=== PATIENT | male | born 2000 | race African-American/Black ===

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

== ENCOUNTER 2021-07-26 06:19 | Emergency (ER) | payer MEDICAID, SELFPAY ==
[2021-07-26 06:32] VITALS: BP 130/85; PULSE 108; RESP 18; TEMP 37; O2SAT 96; BMI 30.4
[2021-07-26 06:40] VITALS: BP 112/77; PULSE 111; RESP 18; TEMP 36.8; O2SAT 96
--- NOTE | 2021-07-26 06:50 | ED_ITS ---
HPI - General Adult General Chief complaint: Upper Respiratory Symptoms Stated complaint: covid symptoms ? Time Seen by Provider: 07/26/21 06:41 Source: patient Mode of arrival: ambulatory Limitations: no limitations History of Present Illness HPI narrative: he has had 2 Pfizer vaccines MD complaint: body aches, headache, nausea, vomiting Onset (ago): day(s) (yesterday) Location: head and abdomen Radiation: non-radiation Severity: mild Quality: aching Relieving factors: none Exacerbating factors: none Associated symptoms: fever/chills, headaches, loss of appetite and nausea/vomiting Treatments prior to arrival: other (mom gave him tums and tylenol yesterday ) Related Data Previous Rx's Medication Instructions Recorded meclizine 25 mg tablet 25 mg PO DAILY PRN #10 tab 05/13/20 ondansetron 4 mg disintegrating 4 mg PO Q8H PRN #20 tab 07/26/21 tablet Allergies Allergy/AdvReac Type Severity Reaction Status Date / Time No Known Allergies Allergy Unverified 04/27/20 19:44 [No Known Allergies*] Review of Systems Review of Systems: Constitutional : positive Fever, positive Chills, positive fatigue, positive Malaise ENT/Mouth : no sore throat, positive runny nose Eyes: No Discharge Cardiovascular : No Chest Pain, No SOB Respiratory : No Cough, No Sputum Gastrointestinal : pos Nausea, pos Vomiting, No Diarrhea Genitourinary : No Dysuria, No Urinary Frequency Musculoskeletal : positive Myalgia Skin : No rash Neuro : pos Headache PMFSH Past Medical History Medical History No known health problems Family History Family History (Updated 05/13/20 @ 16:17 by Tony Del Cid DO) Mother Sjogren's disease Social History Social History (Updated 07/26/21 @ 06:55 by Nancy Mullen DO) Alcohol intake: never Patient Tobacco Use Status: Never used Tobacco Advance Directives: No Advance Directives Information Provided: Yes Physical Exam Vital Signs: Vital Signs: Last Vital Signs Temp 98.7 F 07/26/21 07:03 Pulse 86 07/26/21 07:03 Resp 16 07/26/21 07:03 BP 119/74 07/26/21 07:03 Pulse Ox 95 07/26/21 07:03 BMI result Body Mass Index 30.4 Appearance: Alert. Oriented X3. No acute distress. Eyes: Pupils equal, round and reactive to light. ENT: Pharynx normal. Neck: Normal inspection. Neck supple. no meningeal signs. CVS: Normal heart rate and rhythm. Pulses normal. Respiratory: No respiratory distress. Breath sounds normal. Abdomen: Soft and non-tender. Skin: Skin warm and dry. Normal skin color. Normal skin turgor. Extremities: No lower extremity edema. No calf ttp Neuro: Oriented X 3. No motor deficit. No sensory deficit. Course Course Course Narrative: negative COVID feels better Medical Decision Making [facility] Narrative Medical decision making narrative: 21 yo male with no sig PMH vaccinated x 2 here with c/o abdominal pain n/v headaches not feeling since yesterday - at this time will need COVID swab, zofran and tylenol - he is overall not toxic. His abdomen is benign. no localized pain to suggest appendicitis or cholecysitis - dispo per results and findings Lab Data Labs: Lab Results 07/26/21 Range/Units 06:45 COVID-19 ([facility]) Negative (Negative) COVID-19 Clin Com See Note Discharge Plan Discharge Clinical Impression: Viral infection Patient Disposition: Home, Self-Care Instructions: Viral Syndrome (ED) Additional Instructions: return to ED for any worsening symptoms or concerns drink plenty of fluids COVID negative if symptoms persist repeat testing for COVID in 2 days Prescriptions: New ondansetron 4 mg tablet,disintegrating 4 mg PO Q8H PRN (Reason: nausea and vomiting) Qty: 20 RF: 0 No Action meclizine 25 mg tablet 25 mg PO DAILY PRN (Reason: dizziness) Qty: 10 RF: 0 Stand Alone Forms: Work/School Release
[2021-07-26 07:03] VITALS: BP 119/74; PULSE 86; RESP 16; TEMP 37.1; O2SAT 95
[2021-07-26 07:16] LABS: COVID-19 Test Negative (Negative)
[2021-07-26] MEDS: Acetaminophen 325 MG TABLET 650 MG PO (07:32)
[2021-07-26] MEDS: Ondansetron ODT 4 MG TAB.RAPDIS TRANSLINGU (07:32)
[2021-07-26 07:33] VITALS: BP 117/69; PULSE 100; RESP 18; TEMP 36.8; O2SAT 96
== END 2021-07-26 08:10 | disposition home or self-care (01) ==
PROVIDERS: Emergency Provider Emergency Medicine; PCP Internal Medicine
DX: B34.9 Viral infection, unspecified (principal); Z20.822 Contact with and (suspected) exposure to COVID-19; R51.9 Headache, unspecified
CPT/HCPCS: 36415; 87635; 99283; 99284

== ENCOUNTER 2021-09-08 00:13 | Emergency (ER) | payer MEDICAID, SELFPAY ==
--- NOTE | ~2021-09-08 | XR_ITS ---
EXAMINATION: XR CHEST CLINICAL INFORMATION: Cough COMPARISON: None TECHNIQUE: Frontal view of the chest was obtained. FINDINGS: No significant abnormality is noted involving the heart, lungs, mediastinum, bony thorax or soft tissues. XR/XR chest 1V IMPRESSION: Unremarkable examination.
[2021-09-08 00:16] VITALS: BMI 33.1
[2021-09-08 00:27] VITALS: BP 120/81; PULSE 91; RESP 16; TEMP 36.8; O2SAT 96
--- NOTE | 2021-09-08 00:38 | ED_ITS ---
HPI - URI/Sore Throat General Chief Complaint: Upper Respiratory Symptoms Stated Complaint: chest pain, COVID + Time Seen by Provider: 09/08/21 00:17 Source: patient Mode of arrival: ambulatory Limitations: no limitations History of Present Illness HPI Narrative: vaccinated x 2 MD elicited complaint: cough (chest tightness ) Pertinent past history: other (had rapid test at work [employer]) Onset (ago): day(s) (2) Consistency: intermittent Severity: mild Description of mucous: clear Able to tolerate fluids by mouth: Yes Exacerbating factors: other (coughing) Relieving factors: nothing Associated symptoms: cough and chest pain Treatments prior to arrival: none Related Data Previous Rx's Medication Instructions Recorded meclizine 25 mg tablet 25 mg PO DAILY PRN #10 tab 05/13/20 ondansetron 4 mg disintegrating 4 mg PO Q8H PRN #20 tab 07/26/21 tablet Allergies Allergy/AdvReac Type Severity Reaction Status Date / Time No Known Allergies Allergy Verified 09/08/21 00:20 [No Known Allergies*] Review of Systems Verdana 4l Review of Systems: Verdana 4d Verdana 4d Constitutional : no Fever, positive Chills, positive fatigue, positive Malaise ENT/Mouth : no sore throat, no runny nose Eyes: No Discharge Cardiovascular : pos Chest Pain, pos SOB Respiratory : pos Cough, No Sputum Gastrointestinal : No NauseaNausea, No Vomiting, No Diarrhea Genitourinary : No Dysuria, No Urinary Frequency Musculoskeletal : positive Myalgia Skin : No rash Neuro : No Headache PMFSH Past Medical History Attestation statement: The following information was validated with the patient. Medical History No known health problems Family History Family History (Updated 05/13/20 @ 16:17 by Tony Del Cid DO) Mother Sjogren's disease Social History Social History Alcohol intake: never Patient Tobacco Use Status: Never used Tobacco Advance Directives: No Advance Directives Information Provided: Yes Physical Exam Verdana 4l Vital Signs: Verdana 4d Verdana 4d Vital Signs: Verdana 4d Verdana 4Bd Last Vital Signs Verdana 4d [employer] New 4d [employer] New 4d Temp 98.2 F 09/08/21 00:27 [employer] New 4d Pulse 91 09/08/21 00:27 [employer] New 4d Resp 16 09/08/21 00:27 BP 120/81 09/08/21 00:27 Pulse Ox 96 09/08/21 00:27 BMI result Body Mass Index 33.1 Appearance: Alert. Oriented X3. No acute distress. Eyes: Pupils equal, round and reactive to light. ENT: Pharynx normal. Neck: Normal inspection. Neck supple. CVS: Normal heart rate and rhythm. Pulses normal. Respiratory: No respiratory distress. Breath sounds normal. Abdomen: Soft and non-tender. Skin: Skin warm and dry. Normal skin color. Normal skin turgor. Extremities: No lower extremity edema. No calf ttp Neuro: Oriented X 3. No motor deficit. No sensory deficit. Course Course Course Narrative: negative EKG and troponin stable for DC MDM - URI/Sore Throat MDM Narrative Medical decision making narrative: 21 yo male with 2 Pfizer vaccines here with c/o home COVID test positive c/o co ugh and chest tightness has no hypoxia or tachycardia to suggest PE will repeat COVID test and CXR - doubt ACS/PE will send off EKG and trop. Lab Data Labs: Lab Results 09/08/21 09/08/21 Range/Units 00:22 01:04 Troponin I High Sens < 3.5 (<3.5-35.0) ng/L COVID-19 ([facility]) Positive A (Negative) COVID-19 Clin Com See Note ECG Data Attestation: I personally reviewed and interpreted this ECG as follows: ECG interpretation date: 09/08/21 ECG interpretation time: 01:09 Interpretation: Rate: 87 Rhythm: NSR [place]: normal Normal P waves. Normal RAMSEY. Normal QRS complex. ST T wave : normal no REY qTC: normal prior studies: no acute ischemia The study has been interpreted contemporaneously by me. . Discharge Plan Discharge Clinical Impression: COVID-19 Patient Disposition: Home, Self-Care Instructions: COVID-19 (Coronavirus Disease 2019) (ED) Additional Instructions: return to ED for any worsening symptoms or concerns monitor your breathing if you are so short of your breath you cannot walk to your bathroom seek medical care EKG and troponin heart test were normal no covid pneumonia on chest xray Prescriptions: No Action meclizine 25 mg tablet 25 mg PO DAILY PRN (Reason: dizziness) Qty: 10 0RF ondansetron 4 mg tablet,disintegrating 4 mg PO Q8H PRN (Reason: nausea and vomiting) Qty: 20 0RF Stand Alone Forms: Work/School Release
[2021-09-08 00:42] LABS: COVID-19 Test Positive (Negative)
--- NOTE | 2021-09-08 00:43 | ECG_ITS ---
Test Reason : CP Blood Pressure : / mmHG Vent. Rate : 087 BPM Atrial Rate : 087 BPM P-R Int : 170 ms QRS Dur : 080 ms QT Int : 334 ms P-R-T Axes : 039 058 030 degrees QTc Int : 401 ms Normal sinus rhythm Normal ECG No previous ECGs available Referred By: Nancy Mullen Electronically Signed By:FELIX SOLIS
--- NOTE | 2021-09-08 01:22 | PC.NURSE ---
CARE TRANSFERED AND REPORT GIVEN TO SADE RAPHAEL.
[2021-09-08 01:33] LABS: Troponin-I High Sensitivity < 3.5 ng/L (<3.5-35.0)
== END 2021-09-08 01:50 | disposition home or self-care (01) ==
PROVIDERS: Emergency Provider Emergency Medicine
DX: U07.1 COVID-19 (principal)
CPT/HCPCS: 36415; 71045; 84484; 87635; 93005; 99283; 99284

== ENCOUNTER 2023-05-18 17:26 | Emergency (ER) | payer OTHER, SELFPAY | END 2023-05-18 20:33 | disposition left against medical advice (07) | LOC: HO.ED 20:18 | PROVIDERS: Emergency Provider Emergency Medicine | DX: Z20.822 Contact with and (suspected) exposure to COVID-19 (principal); Z11.52 Encounter for screening for COVID-19 ==